=== PATIENT | female | born 1990 | race Caucasian/White ===

== ENCOUNTER 2016-12-14 09:38 | Emergency (ER) | payer OTHER ==
[2016-12-14 09:41] VITALS: BMI 42.8
[2016-12-14 09:45] VITALS: BP 118/82; PULSE 63; RESP 18; TEMP 97.6; O2SAT 100
[2016-12-14] MEDS ORDERED: Oxycodone/Acetaminophen 5/325 mg Tab PO STA (10:24)
--- NOTE | 2016-12-14 10:26 | C.PDOC ---
History Of Present Illness 26 yr old female presents to the ER with complaints of bilateral wrist pain, left more then right for the past 5 days. Patient states she was doing lots of cooking 5 days ago when the pain started, states the pain was bearable initially but it worsened the next day. St Patient states she has tried Aleve for the pain with minimal relief. Denies history if wrist injury or pain, fever , arm pain, shoulder pain, back pain, neck pain, weakness or numbness. Time Seen by Provider: 12/14/16 09:58 Chief Complaint (Nursing): Upper Extremity Problem/Injury History Per: Patient History/Exam Limitations: no limitations Onset/Duration Of Symptoms: Days (5) Current Symptoms Are (Timing): Still Present Past Medical History Reviewed: Historical Data, Nursing Documentation, Vital Signs Vital Signs: Last Vital Signs Temp 97.6 F 12/14/16 09:42 Pulse 63 12/14/16 09:42 Resp 18 12/14/16 09:42 BP 118/82 12/14/16 09:42 Pulse Ox 100 12/14/16 10:58 - Medical History PMH: Anxiety, Depression - [facility] Procedures INJECT/INFUSE NEC (02/10/13) Family History: States: No Known Family Hx - Social History Hx Tobacco Use: No Hx Alcohol Use: No Hx Substance Use: No Review Of Systems Except As Marked, All Systems Reviewed And Found Negative. Constitutional: Negative for: Fever Musculoskeletal: Positive for: Other ((+) Bilateral wrist pain. Left>Right. ). Negative for: Neck Pain, Shoulder Pain, Arm Pain, Back Pain Neurological: Negative for: Weakness, Numbness Physical Exam - Physical Exam Appears: Well, Non-toxic, No Acute Distress Neck: Normal ROM, No Midline Cervical Tenderness, No Paracervical Tenderness, Supple Extremity: Other (Right Wrist - Full ROM. Left Wrist - Diffuse tenderness with marked decreased ROM due to pain. No crepitus. Good strenths in both hands.) Neurological/Psych: Oriented x3, Normal Speech, Normal Motor, Normal Sensation Gait: Steady ED Course And Treatment O2 Sat by Pulse Oximetry: 100 Medical Decision Making Medical Decision Making: PLAN: * Percocet PO * Toradol IM Clinically c/w tendonitis plan nsaid Disposition Counseled Patient/Family Regarding: Diagnosis, Need For Followup - Disposition Referrals: Shaik Rucker MD [Staff Provider] - Disposition: HOME/ ROUTINE Disposition Time: 10:26 Condition: GOOD Prescriptions: Meloxicam [Mobic] 1 tab PO DAILY #20 tab Instructions: Tendinitis (ED) - Clinical Impression Clinical Impression: Tendonitis of both wrists - Scribe Statement The provider has reviewed the documentation as recorded by the Scribe Isabel Bhat Provider Attestation: All medical record entries made by the Scribe were at my direction and personally dictated by me. I have reviewed the chart and agree that the record accurately reflects my personal performance of the history, physical exam, medical decision making, and the department course for this patient. I have also personally directed, reviewed, and agree with the discharge instructions and disposition.
[2016-12-14] MEDS ORDERED: Oxycodone/Acetaminophen 5/325 mg Tab ONE (10:30)
== END 2016-12-14 10:43 | disposition home or self-care (01) ==
LOC: C.ER 09:38
DX: M77.9 Enthesopathy, unspecified (principal)
CPT/HCPCS: 96372; 99284; J1885